=== PATIENT | female | born 1940 | race Caucasian/White ===

== ENCOUNTER → 2023-10-06 11:21 | Outpatient (REF) | payer OTHER, SELFPAY | LOC: DHCBC/DCA 11:21 | PROVIDERS: ATTENDING PHYSICIAN Family Medicine Sports Medicine; REFERRING PHYSICIAN Internal Medicine | DX: R06.02 Shortness of breath (principal) | CPT/HCPCS: 78452; 93017; A9500; J2785 ==

== ENCOUNTER 2024-04-27 07:11 | Emergency (ER) | payer OTHER, SELFPAY ==
[2024-04-27 07:13] VITALS: BP 153/68
--- NOTE | 2024-04-27 08:29 | ED.GENMED ---
History of Present Illness
General
Chief Complaint: Fall
Source: patient
Exam Limitations: none
Time Seen by Provider: 04/27/24 07:48
Nursing documentation reviewed up to this point in time: agreed with
History of Present Illness
History of Present Illness:
83-year-old female presenting to the emergency department today with concerns of a trip and fall yesterday evening when looking at her [employer] lights. Hit the back of her head which caused some bleeding and also injured her right shoulder. Takes
an aspirin but no additional blood thinners no loss of consciousness no numbness or weakness discomfort mainly to the right shoulder denies significant discomfort of the head or neck. No lower extremity discomfort no chest pain or abdominal pain.
Past History
Past History
ED Past Medical History: GERD, HTN, Hypercholesterolemia, Hypothyroidism and Other (Diverticulitis, Macular degeneration ,right foot fracture. )
ED Past Surgical History: None and Orthopedic (Left total knee replacement, Left wrist surgery, )
Social History
Tobacco: Former smoker
Alcohol: None
Drug: None
Personal:
Living: alone
Family History
Family History: Negative Diabetes, Hypertension, Early CAD, Asthma or Cancer
Review of Systems
Review of Systems
Allergies reviewed?: Yes
All Other Systems: ROS reviewed and negative except as documented in HPI and ROS
Phy Exam
Physical Exam
Physical Exam:
GENERAL: Alert , in no apparent distress
EYE: pupils equal and reactive
NECK: Supple, no significant adenopathy.
ENT: Superficial abrasion to the occipital scalp no gaping lacerations requiring closure. o/p clr, mmm.
CARDIAC: Regular rate and rhythm .
LUNGS: Clear breath sounds bilaterally, no acute respiratory distress, no wheezes/rales/rhonchi
ABDOMEN: Soft, without focal tenderness, no r/g, no cvat
NEUROLOGICAL: Alert and oriented, no focal neuro deficits
SKIN: Warm and dry, skin intact.
MUSCULOSKELETAL: Mild discomfort throughout the right shoulder and mid to proximal humerus. No edema, well perfused.
PSYCH: Normal and appropriate interaction.
Course
Orders/Labs/Results
Orders:
Orders
04/27/24 07:19
CR Shoulder, Trauma - Right Urgent
Comment:
Reason For Exam: fall
04/27/24 07:48
CT Head W/o Iv Contrast Urgent
Comment:
Reason For Exam: fall hit head
04/27/24 08:08
CR Humerus - Right Min 2 View* Urgent
Comment:
Reason For Exam: fall arm pain
04/27/24 11:00
Tetanus/Diphth/Acelpertussis [Adacel] 0.5 ml IM .ONCE ONE
Vital Signs
Initial and Last Documented VS:
Initial Vital Signs
Temp Pulse Resp BP Pulse Ox
98.0 F 64 18 153/68 99
04/27/24 07:13 04/27/24 07:13 04/27/24 07:13 04/27/24 07:13 04/27/24 07:13
Last Documented Vital Signs
Temp Pulse Resp BP Pulse Ox
98.0 F 64 18 153/68 99
04/27/24 07:13 04/27/24 07:13 04/27/24 07:13 04/27/24 07:13 04/27/24 07:13
MDM/Problems Addressed
MDM/Problems Addressed:
83-year-old female presenting to the emergency department today with concerns of right shoulder discomfort also in the back of her head when tripping and falling yesterday evening. No loss of consciousness no numbness or weakness not on blood
thinners but is on a baby aspirin daily. On arrival vital signs are normal patient no distress does have a superficial abrasion to the occipital scalp. Plan for CT scan for further assessment. Initial x-ray of the shoulder without signs of
emergent fracture. CT scan without emergent findings no life-threatening injuries at this time stable for outpatient management. Return precautions given.
*Critical Care Note
Total Time (30-74mins, 75-104mins- exclusive of procedures): Not Applicable
ED Attending Note
-
Portions of this chart may have been created with voice recognition software.� Occasional wrong word or��sound alike� substitutions may have occurred due to the inherent limitations of voice recognition software.
Discharge Plan
Departure
Patient Disposition: Home (Routine Discharge)
Date of Disposition: 04/27/24
Time of Disposition: 10:31
Patient with high blood pressure during this ER visit?: No
Condition: Good
Covid-19: Not Applicable
Discharge Problem:
Fall, Hematoma of scalp, Shoulder sprain
Instructions: Preventing falls in adults
Prescriptions:
No Action
clopidogrel 75 MG tablet
75 mg PO QDAY
omeprazole 40 MG capsule,delayed release(DR/EC)
40 mg PO DAILY
aspirin 81 MG tablet,delayed release (DR/EC)
81 mg PO QPM
PreserVision AREDS 1 CAP capsule
1 cap PO BID
sertraline 25 MG tablet
25 mg PO HS
metoprolol succinate 25 MG tablet extended release 24 hr
50 mg PO DAILY
fluticasone propionate 1 SPRAY spray,suspension
1 spray intranasal DAILYPRN PRN (Reason: allergies)
coenzyme [id number] 1 CAP capsule
100 mg PO QPM
amlodipine-benazepril 1 EACH capsule
1 cap PO QPM
Rx Instructions:
DOSE 10/40
artifi.tears(hypromellose)(PF) 0.44 ML drops
1 drp BOTH EYES UD
Patient Comments:
02/01/2020- starts 3 days before injections to eyes
Systane Gel 10 ML drops,gel
1 drp BOTH EYES QIDPRN PRN (Reason: dry eyes from tx)
turmeric 400 MG capsule
400 mg PO DAILY
gabapentin 600 mg Tablet
600 mg PO HS
ezetimibe [Zetia] 10 mg Tablet
10 mg PO DAILY
levothyroxine 100 MCG tablet
100 mcg PO DAILY AT 0700
cholecalciferol (vitamin D3) [Vitamin D3] 50 mcg (2,000 unit) Capsule
50 mcg PO TID
potassium chloride 20 mEq/15 mL liquid
20 meq PO DAILY Qty: 450 0RF
amoxicillin-pot clavulanate 875-125 mg tablet
1 tab PO Q12H Qty: 28 0RF
amitriptyline 50 MG tablet
25 mg PO QPM Qty: 30 0RF
Referrals:
Chace Roper DO [Family Provider] -
Activity Restrictions/Additional Instructions:
You came to the emergency department today with concerns of a fall. You had a head CT which did not show any emergent findings as well as of your shoulder and humerus. Please rest and slowly increase activity over the next week or so and follow-up
close with the primary care doctor. Return to the emergency department any worsening, new or concerning symptoms.
Interventions
Interventions:
*Risk Screen - Suicide Last Done: 04/27/24 07:13
*ED COVID-19 Vaccine History Last Done: 04/27/24 07:13
ED-Musculoskeletal Assessment Last Done: 04/27/24 08:41
ED- Neurological Assessment Last Done: 04/27/24 08:41
Discharge Date and Time
Print Language: LUXEMBOURGER
[2024-04-27] MEDS: ADACEL 0.5 ML IM (10:20)
== END 2024-04-27 10:53 | disposition home or self-care (01) ==
LOC: EMR 07:11
PROVIDERS: EMERGENCY PHYSICIAN Emergency Medicine; FAMILY PHYSICIAN Family Medicine Sports Medicine
DX: S00.03XA Contusion of scalp, initial encounter (principal); S43.401A Unspecified sprain of right shoulder joint, initial encounter; W01.0XXA Fall on same level from slipping, tripping and stumbling without subsequent striking against object, initial encounter; E03.9 Hypothyroidism, unspecified; E78.00 Pure hypercholesterolemia, unspecified; I10 Essential (primary) hypertension; K21.9 Gastro-esophageal reflux disease without esophagitis; Z79.82 Long term (current) use of aspirin; Z87.891 Personal history of nicotine dependence; Z23 Encounter for immunization
CPT/HCPCS: 90471; 99284; 70450; 73030; 73060; 90715

== ENCOUNTER → 2024-06-28 11:05 | Outpatient (REF) | payer OTHER, SELFPAY | LOC: RAD 11:05 | PROVIDERS: ATTENDING PHYSICIAN Family Medicine Sports Medicine | DX: M25.511 Pain in right shoulder (principal); M54.2 Cervicalgia; M25.562 Pain in left knee | CPT/HCPCS: 72050; 73030; 73564 ==

== ENCOUNTER 2025-05-04 13:17 | Emergency (ER) | payer OTHER, SELFPAY ==
[2025-05-04 13:25] VITALS: BP 152/67
[2025-05-04] MEDS: TYLENOL 650 MG PO (15:47)
--- NOTE | 2025-05-04 15:55 | ED.GENMED ---
History of Present Illness
General
Chief Complaint: Fall
Source: patient
Exam Limitations: none
Time Seen by Provider: 05/04/25 15:15
Nursing documentation reviewed up to this point in time: agreed with
History of Present Illness
History of Present Illness:
Pt presents to ED secondary to headache and lower back pain, after she lost balance during lunch and fell onto her left side, hitting left side of head in the process. Since the fall, pt is experiencing pain along the right side of head. Denies
blurred vision. Denies dizziness. Denies neck pain. Denies chest pain. Denies sob. Denies nausea/vomiting. Denies loss of sensation/weakness. Pt currently takes 81mg aspirin daily. In addition, pt is reports diffuse lower back/tailbone pain since
the fall. Denies urinary/bowel incontinence. Pt has had history of previous coccyx fracture.
Past History
Past History
ED Past Medical History: GERD, HTN, Hypercholesterolemia, Hypothyroidism and Other (Diverticulitis, Macular degeneration ,right foot fracture. )
ED Past Surgical History: None and Orthopedic (Left total knee replacement, Left wrist surgery, )
Social History
Tobacco: Former smoker
Alcohol: None
Drug: None
Personal:
Living: alone
Family History
Family History: Negative Diabetes, Hypertension, Early CAD, Asthma or Cancer
Review of Systems
Review of Systems
Allergies reviewed?: Yes
All Other Systems: ROS reviewed and negative except as documented in HPI and ROS
Constitutional: Reports no symptoms; Denies fever
EENT: Reports no symptoms
Respiratory: Reports no symptoms
Cardiac: Denies chest pain, palpitations or syncope
ABD/GI: Reports no symptoms; Denies nausea or vomiting
Musculoskeletal: Reports back pain
Skin: Reports no symptoms
Neurological: Reports headache; Denies dizzy, weakness or numbness
Phy Exam
Physical Exam
Physical Exam:
Physical Exam
General: mild painful distress, not acutely ill. afebrile
Head: nc/at. eomi
Neck: supple. normal range of motion. no midline tenderness
Heart: s1/s2 regular rate and rhythm
Lungs: no acute respiratory distress. clear bilaterally. chest wall nontender to palpation
Abdomen: normal bowel sounds. not tender.
Back: mild diffuse lower back tenderness to palpation at level of L4-5
Neuro: alert and oriented x 3. no focal neurological deficits
Skin: no rash
Psychiatric: well kept. interactive and cooperative
Extremities: no edema. no calf tenderness.
Course
Orders/Labs/Results
Orders:
Orders
05/04/25 13:27
CT Head W/o Iv Contrast Urgent
Comment:
Reason For Exam: fall, Posterior head strike
05/04/25 15:32
Lumbar Spine, 2 or 3 View [CR Lumbar Spine 2 Or 3 Views] Urgent
Comment:
Reason For Exam: pain
05/04/25 15:46
Acetaminophen [Tylenol] 650 mg .ROUTE .STK-MED ONE
05/04/25 15:47
Acetaminophen [Tylenol] 650 mg PO NOW STA
Vital Signs
Initial and Last Documented VS:
Initial Vital Signs
Temp Pulse Resp BP Pulse Ox
97.5 F 54 18 152/67 98
05/04/25 13:25 05/04/25 13:25 05/04/25 13:25 05/04/25 13:25 05/04/25 13:25
Last Documented Vital Signs
Temp Pulse Resp BP Pulse Ox
97.5 F 54 18 152/67 98
05/04/25 13:25 05/04/25 13:25 05/04/25 13:25 05/04/25 13:25 05/04/25 15:59
MDM/Problems Addressed
MDM/Problems Addressed:
CT head report and lumbar x-ray report reviewed and discussed with patient. History and exam consistent with likely mild concussive syndrome from trauma, along with mild back pain from the fall. Patient otherwise is afebrile, hemodynamically
stable, neurologically intact, and is able to ambulate independently with steady gait, at time of discharge. Will advise patient to take Tylenol/Motrin for headache, along with PCP follow-up as an outpatient.
*Pulse Oximetry
SaO2: 98
Oxygen Mode of Delivery: Room air
Patient hypoxic: no
*Critical Care Note
Total Time (30-74mins, 75-104mins- exclusive of procedures): Not Applicable
ED Attending Note
-
Portions of this chart may have been created with voice recognition software.� Occasional wrong word or��sound alike� substitutions may have occurred due to the inherent limitations of voice recognition software.
Discharge Plan
Departure
Patient Disposition: Home (Routine Discharge)
Date of Disposition: 05/04/25
Time of Disposition: 17:00
Patient with high blood pressure during this ER visit?: Yes
Discharge Problem:
Head injury, Back pain
Instructions: Head Injury in Adults (DC), Back Pain
Prescriptions:
No Action
clopidogrel 75 MG tablet
75 mg PO QDAY
omeprazole 40 MG capsule,delayed release(DR/EC)
40 mg PO DAILY
aspirin 81 MG tablet,delayed release (DR/EC)
81 mg PO QPM
PreserVision AREDS 1 CAP capsule
1 cap PO BID
sertraline 25 MG tablet
25 mg PO HS
metoprolol succinate 25 MG tablet extended release 24 hr
50 mg PO DAILY
fluticasone propionate 1 SPRAY spray,suspension
1 spray intranasal DAILYPRN PRN (Reason: allergies)
coenzyme [id number] E 1 CAP capsule
100 mg PO QPM
amlodipine-benazepril 1 EACH capsule
1 cap PO QPM
Rx Instructions:
DOSE 10/40
artifi.tears(hypromellose)(PF) 0.44 ML drops
1 drp BOTH EYES UD
Patient Comments:
02/01/2020- starts 3 days before injections to eyes
Systane Gel 10 ML drops,gel
1 drp BOTH EYES QIDPRN PRN (Reason: dry eyes from tx)
turmeric 400 MG capsule
400 mg PO DAILY
gabapentin 600 mg Tablet
600 mg PO HS
ezetimibe [Zetia] 10 mg Tablet
10 mg PO DAILY
levothyroxine 100 MCG tablet
100 mcg PO DAILY AT 0700
cholecalciferol (vitamin D3) [Vitamin D3] 50 mcg (2,000 unit) Capsule
50 mcg PO TID
potassium chloride 20 mEq/15 mL liquid
20 meq PO DAILY Qty: 450 0RF
amoxicillin-pot clavulanate 875-125 mg tablet
1 tab PO Q12H Qty: 28 0RF
amitriptyline 50 MG tablet
25 mg PO QPM Qty: 30 0RF
Referrals:
Chace Roper DO [Family Provider, Family Practice]
Activity Restrictions/Additional Instructions:
As discussed, please follow-up with your primary care physician with any further concerns. In ED, CT scan and x-ray did not reveal any acute abnormal findings.
Interventions
Interventions:
*Risk Screen - Suicide Last Done: 05/04/25 13:25
*General Assessment Last Done: 05/04/25 17:21
*Neglect/Abuse Screening Last Done: 05/04/25 17:21
*ED COVID-19 Vaccine History Last Done: 05/04/25 13:25
*ED Influenza Vaccine History Last Done: 05/04/25 13:25
[facility] Fall Risk Assessment Tool Last Done: 05/04/25 17:21
*Nursing Disposition Last Done: 05/04/25 17:21
ED-Musculoskeletal Assessment Last Done: 05/04/25 17:22
ED- Neurological Assessment Last Done: 05/04/25 17:21
ED-Skin Assessment Last Done: 05/04/25 17:23
Discharge Date and Time
Discharge Date/Time: 05/04/25 17:23
Print Language: MONTSERRATIAN
== END 2025-05-04 17:23 | disposition home or self-care (01) ==
LOC: EMR 13:17
PROVIDERS: EMERGENCY PHYSICIAN Emergency Medicine; FAMILY PHYSICIAN Family Medicine Sports Medicine
DX: S09.90XA Unspecified injury of head, initial encounter (principal); W01.10XA Fall on same level from slipping, tripping and stumbling with subsequent striking against unspecified object, initial encounter; I10 Essential (primary) hypertension; E78.00 Pure hypercholesterolemia, unspecified; E03.9 Hypothyroidism, unspecified; Z82.49 Family history of ischemic heart disease and other diseases of the circulatory system; Z87.891 Personal history of nicotine dependence; Z96.652 Presence of left artificial knee joint
CPT/HCPCS: 99284; 70450; 72100